=== PATIENT | female | born 1975 | race Caucasian/White ===

== ENCOUNTER 2021-07-12 08:00 | Outpatient (CLI) | payer OTHER | END 2021-07-12 23:59 | LOC: LAB.R 08:00 | PROVIDERS: ATTEND Registered Nurse | DX: R19.7 Diarrhea, unspecified (principal) | CPT/HCPCS: 81599; 83993; 87045; 87046; 87177; 87209; 87329; 87427; 87449; 87493 ==

== ENCOUNTER 2021-07-12 08:02 | Emergency (ER) | payer OTHER | END 2021-07-12 08:09 | disposition left against medical advice (07) | LOC: ED 08:02 | DX: Z53.21 Procedure and treatment not carried out due to patient leaving prior to being seen by health care provider (principal) ==